=== PATIENT | female | born 1950 | race Caucasian/White ===

== ENCOUNTER 2017-03-13 10:31 | Emergency (ER) | payer OTHER ==
[~2017-03-13] VITALS: Ht 149.9 cm; Wt 120.4 kg
[2017-03-13 10:33] VITALS: BP 134/63
== END 2017-03-13 12:03 | disposition home or self-care (01) ==
LOC: EME → EDBD 10:31 → EME 12:03
DX: S00.83XA Contusion of other part of head, initial encounter (principal); M54.2 Cervicalgia; V47.1XXA Car passenger injured in collision with fixed or stationary object in nontraffic accident, initial encounter; Y92.481 Parking lot as the place of occurrence of the external cause
CPT/HCPCS: 70150; 72040; 99281; 99284